=== PATIENT | male | born 1940 | race Caucasian/White ===

== ENCOUNTER 2017-06-08 16:23 | Inpatient (IN) | payer MEDICARE, MEDICAID ==
[~2017-06-08] VITALS: Ht 180.3 cm; Wt 61.7 kg
--- NOTE | 2017-06-08 18:52 | NUR ---
[facility] FROM [facility] FOR HYPERTENSION AND AUDITORY HALLUCINATIONS. GOWNED PT. AWAITING MD ORDER
--- NOTE | 2017-06-08 20:00 | NUR ---
VIOLET BURRIS RN DIRECTOR SEMICONDUCTOR AT BEDSIDE TO EVAL PT. PT CALM AND COOPERATIVE AT THIS TIME.
--- NOTE | 2017-06-08 20:29 | NUR ---
REPORT CALLED TO FELIPA GONZALEZ.
[2017-06-08] MEDS ORDERED: MAG HYDROX/AL HYDROX/SIMETH 30 ML UDC PO PRN (21:30)
[2017-06-08] MEDS ORDERED: MAGNESIUM HYDROXIDE 30 ML UDC PO PRN (21:30)
[2017-06-08] MEDS ORDERED: ACETAMINOPHEN 325 MG TABLET PO PRN (21:30)
[2017-06-08] MEDS ORDERED: LORAZEPAM 0.5 MG TABLET PO PRN (21:30)
[2017-06-08] MEDS ORDERED: DOCU-25 PO (22:15)
[2017-06-08] MEDS ORDERED: POLY17PO4 PO (22:15)
[2017-06-08] MEDS ORDERED: TAMS-12 PO (22:15)
[2017-06-08] MEDS ORDERED: CHOL20004 PO (22:15)
[2017-06-08] MEDS ORDERED: METO-306 PO (22:15)
[2017-06-08] MEDS ORDERED: HYDR-552 PO (22:15)
[2017-06-08] MEDS ORDERED: DIGO250T4 PO (22:15)
[2017-06-08] MEDS ORDERED: RIVA10TA PO (22:15)
[2017-06-08] MEDS ORDERED: TEMAZEPAM 7.5 MG CAPSULE ONE (23:47)
[2017-06-09] MEDS ORDERED: HYDROCODONE/APAP 5/325MG 1 EACH TABLET PO PRN
[2017-06-09] MEDS ORDERED: METOPROLOL SUCCINATE 50 MG TAB.SR.24H PO SCH
[2017-06-09] MEDS: TEMAZEPAM 7.5 MG CAPSULE PO PRN
--- NOTE | 2017-06-09 00:14 | NUR ---
PT'S BLOOD PRESSURE IS 115/48 MMHG PULSE 76. METOPROLOL 100 MG PO NOT GIVEN. WILL CONTINUE TO MONITOR PT'S BP FOR SAFETY.
--- NOTE | 2017-06-09 00:15 | NUR ---
PAGED LORE (NURSE PRACTITIONER) REGARDING METOPROLOL 100 MG NOT GIVEN. PER LORE CONTINUE THE NEXT DOSE IN THE MORNING. WILL CONTINUE TO MONITOR FOR SAFETY.
[2017-06-09 05:45] VITALS: BP 145/79
--- NOTE | 2017-06-09 05:53 | NUR ---
ADMISSION RN NOTE: ADMITTED THIS 77 Y/O MALE. PT ADMITTED FROM ER. PT CAME FROM [facility]. PT IS ON 5150 FOR GD. PSYCH DX OF PSYCHOSIS. MEDICAL DX OF HTN, AFIB, BPH. PER HOLD PATIENT IS CONFUSED. PATIENT STATED "I DON'T KNOW WHY I'M HERE, I WANT TO KNOW WHERE YOU GONNA SEND ME". PT IS DISORGANIZED, FORGETFUL, RAMBLING, DISHEVELED, UNKEMPT, RESPONDING TO INTERNAL STIMULI, PREOCCUPIED WITH HIS OWN THOUGHT. ACCORDING TO FACILITY STAFF. PATIENT IS INCREASINGLY CONFUSED, NON COMPLIANT WITH MEDS, RESTLESS, NOT SLEEPING. PT HAS BEEN DECLINING MENTALLY RECENTLY. UPON FACE TO FACE PT IS ALERT & ORIENTED X1-2, CONFUSED, DISORIENTED, DISORGANIZED. RESPIRATION EVEN, BREATHING PATTERN NON-LABORED, NO APPARENT DISTRESS NOTED. NO COMPLAIN OF PAIN AT THIS TIME. V/S WNL. MRSA DONE. SKIN BODY ASSESSMENT DONE. NOTED LEFT LOWER LEG SKIN TEAR, LEFT HAND WOUND, SKIN TEAR, BOTH LOWER LEGS DRYNESS, BACK, CHEST REDNESS, ARMPIT REDNESS, BOTH FOOT DRYNESS, CHEST REDNESS. WOUND CONSULT TRIGGERED. BELONGINGS INVENTORIED AND CHECKED FOR CONTRABAND. VALUABLES WERE PUT TO SAFE. BED LOCKED AND PLACED ON LOWEST POSITION. SIDERAILS UPX2. ALL NEEDS ATTENDED AND ANTICIPATED. WILL CONTINUE TO MONITOR Q15 MINS FOR SAFETY AND BEHAVIOR.
[2017-06-09 07:25] LABS: BASOPHILS % (AUTO) 0.3 % (0.0-2.0); EOSINOPHILS # (AUTO) 0.1 /CMM (0.0-0.7); EOSINOPHILS % (AUTO) 0.4 % (0.0-6.0); HEMATOCRIT 40 % (39-51); HEMOGLOBIN 13.3 g/dL (13.5-17.5); LYMPHOCYTES # (AUTO) 0.9 /CMM (0.8-4.8); LYMPHOCYTES % (AUTO) 7.7 % (20.0-44.0); MEAN CORPUSCULAR HEMOGLOBIN 30 PG (26.0-33.0); MEAN CORPUSCULAR HGB CONC 34 g/dl (31.0-36.0); MEAN CORPUSCULAR VOLUME 88 fL (80-96); MONOCYTES # (AUTO) 0.6 /CMM (0.1-1.30); MONOCYTES % (AUTO) 5.3 % (2.0-12.0); NEUTROPHILS # (AUTO) 10.3 /CMM (1.8-8.9); NEUTROPHILS % (AUTO) 86.3 % (43.0-81.0); PLATELET COUNT (AUTO) 117 /CMM (150-450); RDW COEFFICIENT OF VARIATION 16.8 (11.5-15.0); RED BLOOD CELL COUNT(AUTO) 4.48 MIL/uL (4.5-6.0); WHITE BLOOD COUNT (AUTO) 11.9 K/uL (4.3-11.0)
[2017-06-09 07:40] LABS: ALANINE AMINOTRANSFERASE 14 U/L (12-78); ALBUMIN 3.4 g/dL (3.4-5.0); ALKALINE PHOSPHATASE 80 U/L (46-116); ASPARTATE AMINOTRANSFERASE 15 U/L (15-37); BILIRUBIN,TOTAL 0.7 mg/dL (0.2-1.0); CARBON DIOXIDE 31 mmol/L (21-32); CHLORIDE 104 mmol/L (98-107); CREATININE 0.8 mg/dL (0.6-1.3); GLUCOSE 107 mg/dL (74-106); POTASSIUM 3.8 mmol/L (3.5-5.1); SODIUM SERUM 141 mmol/L (136-145); TOTAL PROTEIN, SERUM 6.6 g/dL (6.4-8.2); UREA NITROGEN, BLOOD 14 mg/dL (7-18)
[2017-06-09 07:53] LABS: CHOLESTEROL 155 mg/dL (<200); HDL CHOLESTEROL 51 mg/dL (40-60); LDL 92 mg/dL (0-99); TRIGLYCERIDES 74 mg/dL (30-150)
[2017-06-09 08:00] VITALS: BP 110/54
[2017-06-09] MEDS ORDERED: POLYETHYLENE GLYCOL 3350 17 GM POWD.PACK PO PRN (08:09)
[2017-06-09] MEDS: METOPROLOL SUCCINATE 50 MG TAB.SR.24H PO SCH (08:56)
[2017-06-09] MEDS: DOCUSATE SODIUM 100 MG CAPSULE PO SCH (09:00)
[2017-06-09] MEDS: TAMSULOSIN 0.4 MG CAP.SR.24H PO SCH (09:00)
[2017-06-09] MEDS: CHOLECALCIFEROL 1,000 UNIT TABLET (VIT D3) PO SCH (09:00)
--- NOTE | 2017-06-09 09:05 | NUR ---
GPS RN: PATIENT REFUSED MORNING MEDS, APPROACHED X3, EXPLAINED THE PURPOSE AND THE IMPORTANCE OF THE MEDICATIONS, PATIENT STILL REFUSED, STATES: "I WANT TO TALK TO MY DOCTOR FIRST". PATIENT IS CONFUSED AND DISORIENTED, HOWEVER, IS NOT IN ANY PHYSICAL DISTRESS, WILL CONTINUE TO MONITOR.
[2017-06-09 12:27] LABS: APPEARANCE,URINE CLOUDY (CLEAR); BILIRUBIN,URINE NEGATIVE (NEGATIVE); BLOOD, URINE 3+ Ery/uL (NEGATIVE); COLOR,URINE YELLOW (YELLOW); KETONES,URINE NEGATIVE (NEGATIVE); LEUKOCYTE ESTERASE ,URINE NEGATIVE (NEGATIVE); NITRITE, URINE NEGATIVE (NEGATIVE); PH,URINE 5.5 (5.0-8.0); PROTEIN,URINE 1+ mg/dl (NEGATIVE); UGLUCOSE NEGATIVE (NEGATIVE); UROBILINOGEN,URINE 0.2 EU/dL (0.2)
[2017-06-09 12:31] LABS: BACTERIA,URINE Rare /HPF (None Seen); MUCUS,URINE Few /LPF (None Seen); SQUAMOUS EPITHELIAL CELL,UR 0-2 /HPF (None Seen); WBC,URINE 0-2 /HPF (0-3)
[2017-06-09 12:32] LABS: URINE AMORPHOUS URATE Many /HPF (None Seen)
[2017-06-09] MEDS: DIGOXIN 0.25 MG TABLET PO SCH (12:35)
[2017-06-09 15:51] VITALS: BP 106/51
[2017-06-09] MEDS: RIVAROXABAN 10 MG TABLET PO SCH (16:37)
[2017-06-09] MEDS: NEOMY SULF/BACITRAC ZN/POLY 15 GM TUBE TP SCH (18:12)
[2017-06-09 20:00] VITALS: BP 105/62
[2017-06-09] MEDS: MIRTAZAPINE 15 MG TABLET PO SCH (21:12)
[2017-06-09] MEDS: Z GUARD REMEDY 2 OZ OINT TP SCH (21:13)
--- NOTE | 2017-06-10 06:43 | NUR ---
RN GPS NOTE PT .REMAINED IN STABLE CONDITION RESTING IN HIS BED ,NO ACUTE DISTRESS NOTED ATTENDED ALL NEEDS AND ANTICIPATED , DENIES SI/ HI AT THIS TIME,WILL ENDORSE TO NEXT SHIFT FOR CONTINUITY OF CARE
[2017-06-10 08:00] VITALS: BP 116/78
[2017-06-10] MEDS: NEOMY SULF/BACITRAC ZN/POLY 15 GM TUBE TP SCH (09:00)
[2017-06-10] MEDS: CHOLECALCIFEROL 1,000 UNIT TABLET (VIT D3) PO SCH (09:00)
[2017-06-10] MEDS: METOPROLOL SUCCINATE 50 MG TAB.SR.24H PO SCH (09:00)
[2017-06-10] MEDS: DOCUSATE SODIUM 100 MG CAPSULE PO SCH (09:00)
[2017-06-10] MEDS: TAMSULOSIN 0.4 MG CAP.SR.24H PO SCH (09:00)
[2017-06-10] MEDS: Z GUARD REMEDY 2 OZ OINT TP SCH ×2 (09:00→21:25)
[2017-06-10] MEDS: DIGOXIN 0.25 MG TABLET PO SCH (13:00)
[2017-06-10 16:00] VITALS: BP 139/53
[2017-06-10] MEDS: RIVAROXABAN 10 MG TABLET PO SCH (17:00)
[2017-06-10] MEDS: QUETIAPINE FUMARATE 25 MG TABLET PO SCH (17:00)
--- NOTE | 2017-06-10 18:21 | NUR ---
PT REFUSED 1700 MEDICATION. HE IS SEVERELY DISORIENTED AND FOCUSED ON HIS BELONGINGS AND WHY HE IS HERE. EVEN AFTER SHOWING HIM ADVISEMENT AND EXPLAINING THE REPORTED EVENTS LEADING UP TO HIS ADMISSION IN THE ER, HE STILL REFUSES IN FACT HE DENIES ANY OF THE REPORTED EVENTS BUT IS UNABLE TO STATE HOW HE ENDED UP IN THE HOSPITAL. TRIED TO GIVE HIM MEDICATIONS 3 DIFFERENT TIMES, BUT HE REFUSES.
[2017-06-10 19:57] VITALS: BP 129/83
[2017-06-10] MEDS: MIRTAZAPINE 15 MG TABLET PO SCH (21:25)
[2017-06-10] MEDS: TEMAZEPAM 7.5 MG CAPSULE PO PRN (21:26)
[2017-06-11 08:00] VITALS: BP 114/69
[2017-06-11] MEDS: TAMSULOSIN 0.4 MG CAP.SR.24H PO SCH (08:40)
[2017-06-11] MEDS: DOCUSATE SODIUM 100 MG CAPSULE PO SCH (08:40)
[2017-06-11] MEDS: METOPROLOL SUCCINATE 50 MG TAB.SR.24H PO SCH (08:40)
[2017-06-11] MEDS: CHOLECALCIFEROL 1,000 UNIT TABLET (VIT D3) PO SCH (08:41)
[2017-06-11] MEDS: Z GUARD REMEDY 2 OZ OINT TP SCH ×2 (09:00→21:18)
--- NOTE | 2017-06-11 09:00 | NUR ---
GPS/RN PATIENT REFUSED MEDICATION X 3, EXPLAINED RISKS AND BENEFITS, HOWEVER, PATIENT IS EXTREMELY DISORIENTED AND CONTINUES TO ADAMANTLY REFUSE ALL MEDICATIONS, WILL CONTINUE TO ENCOURAGE TO COMPLY WITH MD REGIMEN.
[2017-06-11] MEDS: NEOMY SULF/BACITRAC ZN/POLY 15 GM TUBE TP SCH (11:50)
[2017-06-11] MEDS: DIGOXIN 0.25 MG TABLET PO SCH (12:11)
--- NOTE | 2017-06-11 15:56 | NUR ---
Initial discharge plan: Pt is a resident at [facility] [address] [facility] [id number] but unable to verify now if pt is able to return. SW will follow up again with the facility and will help form safe and proper discharge.
[2017-06-11 15:58] VITALS: BP 114/69
[2017-06-11 16:00] VITALS: BP 119/67
[2017-06-11] MEDS: QUETIAPINE FUMARATE 25 MG TABLET PO SCH (16:17)
[2017-06-11] MEDS: RIVAROXABAN 10 MG TABLET PO SCH (16:21)
[2017-06-11 20:07] VITALS: BP 134/87
[2017-06-11] MEDS: MIRTAZAPINE 15 MG TABLET PO SCH (21:13)
[2017-06-11] MEDS: TEMAZEPAM 7.5 MG CAPSULE PO PRN (22:12)
[2017-06-12 08:00] VITALS: BP 133/67
[2017-06-12 08:01] VITALS: BP 133/67
[2017-06-12] MEDS: DOCUSATE SODIUM 100 MG CAPSULE PO SCH ×2 (08:01→08:59)
[2017-06-12] MEDS: TAMSULOSIN 0.4 MG CAP.SR.24H PO SCH ×2 (08:01→08:59)
[2017-06-12] MEDS: METOPROLOL SUCCINATE 50 MG TAB.SR.24H PO SCH ×2 (08:01→09:00)
[2017-06-12] MEDS: CHOLECALCIFEROL 1,000 UNIT TABLET (VIT D3) PO SCH ×2 (08:01→09:00)
--- NOTE | 2017-06-12 09:00 | NUR ---
GPS/RN PATIENT REFUSED 0900 MEDICATION X 3, EXPLAINED RISKS AND BENEFITS, HOWEVER, PATIENT IS EXTREMELY DISORIENTED AND CONTINUES TO ADAMANTLY REFUSE ALL MEDICATIONS, WILL CONTINUE TO ENCOURAGE TO COMPLY WITH MD REGIMEN.
[2017-06-12] MEDS: Z GUARD REMEDY 2 OZ OINT TP SCH ×2 (09:17→20:57)
[2017-06-12] MEDS: NEOMY SULF/BACITRAC ZN/POLY 15 GM TUBE TP SCH (10:15)
[2017-06-12] MEDS: DIGOXIN 0.25 MG TABLET PO SCH (13:40)
--- NOTE | 2017-06-12 14:05 | NUR ---
GEORGE spoke with Tabitha [phone] from [place] [address] [facility] [address] who stated that if pt. needs locked they they may not be appropriate for the patient to return there. GEORGE was provided the admission coordinator, Dionne's phone number [phone] to call to confirm. Per Dionne, pt. cannot return there as he needs a locked facility. GEORGE will follow up with and will find a more appropriate facility.
--- NOTE | 2017-06-12 14:20 | NUR ---
Pt. was referred to to [facility] [address], [place] [address] . will follow up with February from admission. Addendum: 06/12/17 at 1522 by SUNDAY VAZQUEZ February from the facility stated that they are able to accept the patient but will need to open up a bed in their locked unit.
[2017-06-12 16:00] VITALS: BP 133/67
[2017-06-12] MEDS: QUETIAPINE FUMARATE 25 MG TABLET PO SCH (17:11)
[2017-06-12] MEDS: RIVAROXABAN 10 MG TABLET PO SCH (17:12)
[2017-06-12 20:25] VITALS: BP 147/68
[2017-06-12] MEDS: MIRTAZAPINE 15 MG TABLET PO SCH (21:04)
[2017-06-13] MEDS: TEMAZEPAM 7.5 MG CAPSULE PO PRN ×2 (01:59→21:07)
[2017-06-13 08:00] VITALS: BP 112/60
[2017-06-13] MEDS: BOOST PLUS FOOD-VANILLA 237 ML BOX PO SCH ×2 (08:00→18:04)
[2017-06-13] MEDS: DOCUSATE SODIUM 100 MG CAPSULE PO SCH (08:38)
[2017-06-13] MEDS: TAMSULOSIN 0.4 MG CAP.SR.24H PO SCH (08:39)
[2017-06-13] MEDS: CHOLECALCIFEROL 1,000 UNIT TABLET (VIT D3) PO SCH (08:39)
[2017-06-13] MEDS: METOPROLOL SUCCINATE 50 MG TAB.SR.24H PO SCH (08:40)
[2017-06-13] MEDS: Z GUARD REMEDY 2 OZ OINT TP SCH ×2 (08:42→21:06)
[2017-06-13] MEDS: NEOMY SULF/BACITRAC ZN/POLY 15 GM TUBE TP SCH (08:42)
--- NOTE | 2017-06-13 11:55 | NUR ---
WOUND CARE CONSULT: DEFER TO SURGICAL TEAM FOR SKIN ISSUES. SURGICAL TEAM FOLLOWING PATIENT.
[2017-06-13] MEDS: DIGOXIN 0.25 MG TABLET PO SCH (12:33)
[2017-06-13] MEDS: QUETIAPINE FUMARATE 25 MG TABLET PO SCH ×2 (12:40→17:59)
[2017-06-13 16:00] VITALS: BP 111/68
[2017-06-13] MEDS: MEMANTINE HCL 5 MG TABLET PO SCH (17:58)
[2017-06-13] MEDS: RIVAROXABAN 10 MG TABLET PO SCH (17:59)
[2017-06-13 19:53] VITALS: BP 116/73
[2017-06-13] MEDS: MIRTAZAPINE 15 MG TABLET PO SCH (21:07)
[2017-06-14 06:53] LABS: INR 0.99 (0.87-1.13); PROTHROMBIN TIME 10.6 SECS (9.5-12.7)
[2017-06-14 07:11] LABS: ALANINE AMINOTRANSFERASE 7 U/L (12-78); ALBUMIN 3.1 g/dL (3.4-5.0); ALKALINE PHOSPHATASE 78 U/L (46-116); ASPARTATE AMINOTRANSFERASE 18 U/L (15-37); BILIRUBIN,TOTAL 0.5 mg/dL (0.2-1.0); CALCIUM, SERUM 8.5 mg/dL (8.5-10.1); CARBON DIOXIDE 33 mmol/L (21-32); CHLORIDE 105 mmol/L (98-107); CREATININE 0.8 mg/dL (0.6-1.3); GLUCOSE 96 mg/dL (74-106); SODIUM SERUM 141 mmol/L (136-145); TOTAL PROTEIN, SERUM 6.3 g/dL (6.4-8.2); UREA NITROGEN, BLOOD 16 mg/dL (7-18)
[2017-06-14 07:20] LABS: FERRITIN 346 ng/mL (8-388); THYROID STIMULATING HORMONE 1.394 uIU/mL (0.358-3.74)
[2017-06-14 07:25] LABS: BASOPHILS % (AUTO) 0.4 % (0.0-2.0); EOSINOPHILS # (AUTO) 0.1 /CMM (0.0-0.7); EOSINOPHILS % (AUTO) 0.8 % (0.0-6.0); HEMATOCRIT 41 % (39-51); HEMOGLOBIN 13.7 g/dL (13.5-17.5); LYMPHOCYTES # (AUTO) 1.2 /CMM (0.8-4.8); LYMPHOCYTES % (AUTO) 9.8 % (20.0-44.0); MEAN CORPUSCULAR HEMOGLOBIN 29 PG (26.0-33.0); MEAN CORPUSCULAR HGB CONC 33 g/dl (31.0-36.0); MEAN CORPUSCULAR VOLUME 89 fL (80-96); MONOCYTES # (AUTO) 0.6 /CMM (0.1-1.30); PLATELET COUNT (AUTO) 130 /CMM (150-450); RDW COEFFICIENT OF VARIATION 17.1 (11.5-15.0); RED BLOOD CELL COUNT(AUTO) 4.65 MIL/uL (4.5-6.0); WHITE BLOOD COUNT (AUTO) 11.9 K/uL (4.3-11.0)
[2017-06-14 07:35] LABS: IRON, SERUM 45 ug/dl (50-175); TOTAL IRON BINDING CAPACITY 261 ug/dl (250-450)
[2017-06-14 08:00] VITALS: BP 135/77
[2017-06-14] MEDS: CHOLECALCIFEROL 1,000 UNIT TABLET (VIT D3) PO SCH (08:35)
[2017-06-14] MEDS: DOCUSATE SODIUM 100 MG CAPSULE PO SCH (08:35)
[2017-06-14] MEDS: MEMANTINE HCL 5 MG TABLET PO SCH ×2 (08:35→17:28)
[2017-06-14] MEDS: TAMSULOSIN 0.4 MG CAP.SR.24H PO SCH (08:35)
[2017-06-14] MEDS: QUETIAPINE FUMARATE 25 MG TABLET PO SCH ×3 (08:35→17:28)
[2017-06-14] MEDS: Z GUARD REMEDY 2 OZ OINT TP SCH ×2 (08:37→21:03)
[2017-06-14] MEDS: NEOMY SULF/BACITRAC ZN/POLY 15 GM TUBE TP SCH (08:37)
[2017-06-14] MEDS: BOOST PLUS FOOD-VANILLA 237 ML BOX PO SCH ×2 (08:51→17:00)
[2017-06-14] MEDS: METOPROLOL SUCCINATE 50 MG TAB.SR.24H PO SCH (09:00)
--- NOTE | 2017-06-14 10:43 | NUR ---
GPS/RN ENCOURAGED PATIENT TO CONSENT TO CT SCANS, PATIENT STATED THAT HE WOULD CONSENT TO CT SCAN OF CHEST AND ABDOMEN BUT IS NOT WILLING TO HAVE THE TESTS DONE TODAY, STATED THAT HE WILL BE WILLING TO HAVE TESTS DONE TOMORROW. CHARGE NURSE AWARE, RADIOLOGY AWARE, WILL NOTIFY DR ALBERTO AND REMOVE PATIENT FROM NPO STATUS.
--- NOTE | 2017-06-14 10:47 | NUR ---
GPS/RN NPO STATUS REMOVED UNTIL FURTHER NOTICE.
--- NOTE | 2017-06-14 14:00 | NUR ---
GPS/RN SPOKE WITH DR ALBERTO REGARDING PATIENT REFUSAL TO HAVE CT OF CHEST AND ABDOMEN DONE TODAY AND THAT HE WOULD AGREE TO HAVE THE CT SCANS DONE TOMORROW, VERBALIZED UNDERSTANDING, NO NEW ORDERS AT THIS TIME.
[2017-06-14] MEDS: DIGOXIN 0.25 MG TABLET PO SCH (14:09)
--- NOTE | 2017-06-14 14:30 | NUR ---
GPS/RN PATIENT REFUSED TO SIGN CONTRAST CONSENT FORM X3, EXPLAINED RISKS AND BENEFITS IN DEPTH BUT CONTINUES TO REFUSE. WILL CONTINUE TO ENCOURAGE TO COMPLY WITH MD REGIMEN AND TREATMENTS.
[2017-06-14 16:00] VITALS: BP 118/63
--- NOTE | 2017-06-14 16:52 | NUR ---
RN-CO: Dr Rashid Ren (oncologist) seen and examined patient and explained the procedures that need to be done asked for patient to sign the consent forms of CT of chest and abdomen w/ and w/out contrast and bone marrow biopsy but patient refused. Per Dr Mike , Dr Jaimes will try to help in explaining the tests once again to him tomorrow.
[2017-06-14] MEDS: RIVAROXABAN 10 MG TABLET PO SCH (17:29)
--- NOTE | 2017-06-14 19:30 | NUR ---
GPS RN NOTE, RECEIVED PATIENT AWAKE AND IN BED, NO S/S OR COMPLAINTS OF PAIN AT THIS TIME. PATIENT IS DISPLAYING NO S/S OF APPARENT DISTRESS AT THIS TIME. PATIENT BREATHING IS UNLABORED WITH EQUAL RISE AND FALL OF THE CHEST. PATIENT IS ALERT AND ORIENTED X 1 ON ROOM AIR WITH A SPO2 97%. PATIENT SELECTIVE WITH MEDICATION, ANXIOUS, COOPERATIVE, CALM, CONFUSED, AND NEEDS REORIENTATION. PATIENT DENIES SUICIDE AND HOMICIDAL IDEATIONS AT THIS TIME. PATIENT ASSISTED WITH TURNING AND REPOSITIONING Q2HR AND PRN FOR COMFORT AND CIRCULATION. PATIENT HAS NO NEEDS AT THIS TIME. PATIENT EDUCATED ON THE USE OF THE CALL LUIS. PATIENT BED SIDE RAILS UP X2 FOR SAFETY, BED IS LOCKED AND LOW WILL CONTINUE TO MONITOR AND MAINTAIN SAFETY.
[2017-06-14 20:00] VITALS: BP 119/63
[2017-06-14] MEDS: MIRTAZAPINE 15 MG TABLET PO SCH (21:03)
[2017-06-15] MEDS: TAMSULOSIN 0.4 MG CAP.SR.24H PO SCH (07:51)
[2017-06-15] MEDS: DOCUSATE SODIUM 100 MG CAPSULE PO SCH (07:51)
[2017-06-15] MEDS: MEMANTINE HCL 5 MG TABLET PO SCH ×2 (07:52→17:00)
[2017-06-15] MEDS: CHOLECALCIFEROL 1,000 UNIT TABLET (VIT D3) PO SCH (07:52)
[2017-06-15] MEDS: METOPROLOL SUCCINATE 50 MG TAB.SR.24H PO SCH (07:55)
[2017-06-15 08:00] VITALS: BP 113/58
[2017-06-15] MEDS: Z GUARD REMEDY 2 OZ OINT TP SCH ×2 (08:22→21:28)
[2017-06-15] MEDS: NEOMY SULF/BACITRAC ZN/POLY 15 GM TUBE TP SCH (08:22)
[2017-06-15] MEDS: BOOST PLUS FOOD-VANILLA 237 ML BOX PO SCH ×2 (08:31→17:57)
--- NOTE | 2017-06-15 08:31 | NUR ---
AWAITING CONSENT FOR COMPUTED TOMOGRAPHY CHEST ABDOMEN PELVIS WITH CONTRAST STUDY. PATIENT MUST BE NPO 2-4 HOURS.
[2017-06-15] MEDS: QUETIAPINE FUMARATE 25 MG TABLET PO SCH ×3 (08:33→21:33)
--- NOTE | 2017-06-15 10:48 | NUR ---
Was informed that patient needs to have some procedures done and consent needs to be obtained. GEORGE spoke with GEORGE (Tabitha [phone]) from [address] [address]; [phone] who stated that the patient has a DPOA for healthcare who is his ex-girlfriend and his cousin. GEORGE Lu faxed [employer] Directive Form to GEORGE and GEORGE placed paperwork in the patient's chart and informed the charge nurse who will contact the responsible alliance party for consents. Tabitha also stated that the patient's belongings are packed (5 boxes) and asked if she should bring them to the hospital. GEORGE informed her that she can wait until patient is transferred and new facility will coordinate vegetable picker of the patient's belongings with her. Assigned GEORGE Alfonso to notify her of discharge and coordinate vegetable picker of belongings with new facility.
--- NOTE | 2017-06-15 11:34 | NUR ---
RN-CO: Patient refused again to signed the consent for CT w/ ,w/o contrast, with the explanation of Dr Phoenix oncologist. explained the risk and benefits but pt still refused.
--- NOTE | 2017-06-15 12:00 | NUR ---
GPS RN NOTE: RECEIVED PATIENT RESTING COMFORTABLY IN BED WITH NO SIGNS OF DISTRESS. PATIENT IS ALERT AND ORIENTED. DENIES PAIN. DENIES SI/HI. ALL NEEDS MET AND ANTICIPATED. WILL CONTINUE TO MONITOR FOR SAFETY AND BEHAVIOR.
[2017-06-15] MEDS: DIGOXIN 0.25 MG TABLET PO SCH (13:56)
--- NOTE | 2017-06-15 14:00 | NUR ---
GPS RN NOTE: PATIENT REFUSED WOUND CARE. EDUCATED PATIENT ABOUT RISKS AND BENEFITS X3, BUT PATIENT STILL REFUSED. WILL CONTINUE TO MONITOR.
--- NOTE | 2017-06-15 15:35 | NUR ---
GPS RN NOTE: PATIENT IS FORGETFUL, GUARDED AND NEEDS REORIENTATION. DENIES SI/HI. DENIES PAIN. WILL CONTINUE TO MONITOR Q15 MIN FOR SAFETY AND BEHAVIOR.
[2017-06-15 16:00] VITALS: BP 129/72
[2017-06-15] MEDS: RIVAROXABAN 10 MG TABLET PO SCH (17:00)
--- NOTE | 2017-06-15 17:46 | NUR ---
GPS RN NOTE: PATIENT REFUSED XARELTO 20MG PO TAB AND NAMENDA 5MG PO TAB AND ATTEMPTED KEEPING MEDICATIONS AT BEDSIDE. EDUCATED PATIENT X3 REGARDING RISKS AND BENEFITS OF TAKING MEDICATIONS, BUT PATIENT REFUSED STATING "THOSE ARE NOT PRESCRIBED TO ME BY MY DOCTOR." REVIEWED MEDICATION LIST WITH PATIENT AND MACHINE TAPER PRESENT. PATIENT CONTINUED TO REFUSE MEDICATIONS WHILE ASKING FOR "BARTOLO" AND HIS "DOG." REORIENTED PATIENT THAT HE IS AT [facility] AND THAT HIS DOG IS NOT HERE NOR IS BARTOLO. PATIENT CONTINUED TO REFUSED XARELTO 20MG PO TAB AND NAMENDA 5MG PO TAB DESPITE EDUCATION. CHARGE NURSE INFORMED. MEDICATIONS RETRIEVED AND DISPOSED IN PROPER CONTAINER.
--- NOTE | 2017-06-15 17:49 | NUR ---
RN-CO: Contacted CELESTINE Silke Estrada w/ e mail of [email or web address]. Ms Estrada stated that she will sign the consent but she needs it to be e mail to her and she will take a picture with her signature.
--- NOTE | 2017-06-15 18:10 | NUR ---
MORENACO: Vinicio (aboriginal community council member) e mailed the consent to [facility].
--- NOTE | 2017-06-15 19:01 | NUR ---
RN-CO: certified legal secretary specialist e mailed the consents to Silke SPRAGUE for signature. Awaiting to sign and e mailed it back w/ signature. Endorsed to the next shift. Will continue to follow up.
--- NOTE | 2017-06-15 19:14 | NUR ---
GPS RN NOTE: WOUND CARE ENDORSED TO STATION OPERATOR NURSE. INFORMED THAT PATIENT HAD REFUSED WOUND CARE EARLIER.
[2017-06-15 20:00] VITALS: BP 117/61
--- NOTE | 2017-06-15 21:26 | NUR ---
GPS/RN NOTE: PATIENT REFUSED MEDICATIONS, OFFERED 3X, STILL REFUSED. WILL TRY ONE MORE TIME LATER.
[2017-06-15] MEDS: MIRTAZAPINE 15 MG TABLET PO SCH (22:00)
--- NOTE | 2017-06-16 03:29 | NUR ---
GPS/RN NOTE: PATIENT 2 OF HIS MEDICATIONS, REFUSED REMERON
[2017-06-16 07:23] LABS: BASOPHILS % (AUTO) 0.3 % (0.0-2.0); EOSINOPHILS # (AUTO) 0.1 /CMM (0.0-0.7); EOSINOPHILS % (AUTO) 0.8 % (0.0-6.0); HEMATOCRIT 37 % (39-51); HEMOGLOBIN 12.4 g/dL (13.5-17.5); LYMPHOCYTES # (AUTO) 1.1 /CMM (0.8-4.8); LYMPHOCYTES % (AUTO) 8.8 % (20.0-44.0); MEAN CORPUSCULAR HEMOGLOBIN 30 PG (26.0-33.0); MEAN CORPUSCULAR HGB CONC 34 g/dl (31.0-36.0); MEAN CORPUSCULAR VOLUME 88 fL (80-96); MONOCYTES # (AUTO) 0.6 /CMM (0.1-1.30); MONOCYTES % (AUTO) 4.9 % (2.0-12.0); NEUTROPHILS # (AUTO) 10.7 /CMM (1.8-8.9); NEUTROPHILS % (AUTO) 85.2 % (43.0-81.0); PLATELET COUNT (AUTO) 117 /CMM (150-450); RDW COEFFICIENT OF VARIATION 16.7 (11.5-15.0); RED BLOOD CELL COUNT(AUTO) 4.18 MIL/uL (4.5-6.0); WHITE BLOOD COUNT (AUTO) 12.6 K/uL (4.3-11.0)
--- NOTE | 2017-06-16 07:30 | NUR ---
RECEIVED PT. CONFUSED,ALERT AND UNCOOPErative at times.
[2017-06-16 07:33] LABS: DIGOXIN 0.39 ng/mL (0.90-2.00)
[2017-06-16 07:35] LABS: CALCIUM, SERUM 8.3 mg/dL (8.5-10.1); CARBON DIOXIDE 30 mmol/L (21-32); CHLORIDE 105 mmol/L (98-107); CREATININE 0.7 mg/dL (0.6-1.3); GLUCOSE 90 mg/dL (74-106); MAGNESIUM 1.9 mg/dL (1.8-2.4); PHOSPHORUS 3.7 mg/dL (2.5-4.9); POTASSIUM 4.4 mmol/L (3.5-5.1); SODIUM SERUM 140 mmol/L (136-145); UREA NITROGEN, BLOOD 15 mg/dL (7-18)
[2017-06-16 08:00] VITALS: BP 112/66
--- NOTE | 2017-06-16 08:14 | NUR ---
PT. REFUSING TO SIGN THE CONSENT PER RN DANYELLE), ON HOLD FOR NOW.
[2017-06-16] MEDS: METOPROLOL SUCCINATE 50 MG TAB.SR.24H PO SCH (09:00)
[2017-06-16] MEDS: BOOST PLUS FOOD-VANILLA 237 ML BOX PO SCH ×2 (09:21→17:33)
[2017-06-16] MEDS: DOCUSATE SODIUM 100 MG CAPSULE PO SCH (09:22)
[2017-06-16] MEDS: MEMANTINE HCL 5 MG TABLET PO SCH ×2 (09:22→17:33)
[2017-06-16] MEDS: TAMSULOSIN 0.4 MG CAP.SR.24H PO SCH (09:22)
[2017-06-16] MEDS: QUETIAPINE FUMARATE 25 MG TABLET PO SCH ×3 (09:22→21:20)
[2017-06-16] MEDS: CHOLECALCIFEROL 1,000 UNIT TABLET (VIT D3) PO SCH (09:23)
[2017-06-16] MEDS: Z GUARD REMEDY 2 OZ OINT TP SCH ×2 (09:24→21:22)
[2017-06-16] MEDS: NEOMY SULF/BACITRAC ZN/POLY 15 GM TUBE TP SCH (09:24)
--- NOTE | 2017-06-16 09:30 | NUR ---
refused wound care.
--- NOTE | 2017-06-16 10:30 | NUR ---
DR. FOSTER,DR. ANDERSON IN TO SEE PT.
[2017-06-16] MEDS ORDERED: IOHEXOL-300 100 ML VIAL IV ONE (11:21)
[2017-06-16] MEDS ORDERED: IV NS 0.9% 250 ML IV ONE (11:21)
[2017-06-16] MEDS ORDERED: CT SWABBABLE VALVE TRANS SET 1 EA INFUS.SET MC ONE (11:21)
--- NOTE | 2017-06-16 11:49 | NUR ---
called for patient to have ct done, patient did not have iv, they will call when ready
--- NOTE | 2017-06-16 12:15 | NUR ---
GPS RN: SPOKE WITH LORAINE CHILEL. OBTAINED PHONE CONSENT FOR CT SCAN WITH AND WITHOUT CONTRAST AND FOR BONE MARROW BIOPSY AND ASPIRATION. WITNESSED BY DR. JEFF ALBERTO, ONCOLOGIST.
[2017-06-16] MEDS ORDERED: LIDOCAINE 1% INJ 50 ML MDV IJ ONE (12:30)
--- NOTE | 2017-06-16 12:30 | NUR ---
IV STARTED RT. FOREARM GAUGE [address]DR. ALBERTO HERE AND MULTIPLE ORDERS GIVEN.
--- NOTE | 2017-06-16 12:57 | NUR ---
patient was fed , nurse was aware pt had to be npo 1255
[2017-06-16] MEDS: DIGOXIN 0.25 MG TABLET PO SCH (13:00)
[2017-06-16 16:00] VITALS: BP 122/71
--- NOTE | 2017-06-16 18:00 | NUR ---
no change in status.
--- NOTE | 2017-06-16 18:15 | NUR ---
refused some of meds today.
[2017-06-16 20:00] VITALS: BP 105/70
[2017-06-16] MEDS: MIRTAZAPINE 15 MG TABLET PO SCH (21:20)
[2017-06-17 08:00] VITALS: BP 108/72
[2017-06-17] MEDS: METOPROLOL SUCCINATE 50 MG TAB.SR.24H PO SCH (09:00)
[2017-06-17] MEDS: BOOST PLUS FOOD-VANILLA 237 ML BOX PO SCH ×2 (09:13→17:11)
[2017-06-17] MEDS: MEMANTINE HCL 5 MG TABLET PO SCH ×2 (09:14→17:09)
[2017-06-17] MEDS: QUETIAPINE FUMARATE 25 MG TABLET PO SCH ×3 (09:14→19:13)
[2017-06-17] MEDS: DOCUSATE SODIUM 100 MG CAPSULE PO SCH (09:14)
[2017-06-17] MEDS: TAMSULOSIN 0.4 MG CAP.SR.24H PO SCH (09:14)
[2017-06-17] MEDS: CHOLECALCIFEROL 1,000 UNIT TABLET (VIT D3) PO SCH (09:14)
[2017-06-17] MEDS: NEOMY SULF/BACITRAC ZN/POLY 15 GM TUBE TP SCH (09:15)
[2017-06-17] MEDS: Z GUARD REMEDY 2 OZ OINT TP SCH ×2 (09:16→20:02)
--- NOTE | 2017-06-17 09:21 | NUR ---
GPS RN NOTE; PER CYTOGENETICIST KOBE BIOPSY GOING TO BE DONE AT THE BED SIDE IN GPS DR ALBERTO AWARE AND AGREED
[2017-06-17] MEDS ORDERED: LORAZEPAM 1 MG TABLET PO ONE (09:30)
--- NOTE | 2017-06-17 09:31 | NUR ---
[id number]: GAVE ATIVAN 1 MG PO DUE TO INCREASED ANXIETY UPON PT REQUEST AND WILL CONTINUE TO MONITOR FOR EFFECTIVENESS OF MEDICATION.
--- NOTE | 2017-06-17 10:42 | NUR ---
[id number]: GAVE NORCO 5/325 MG PO DUE TO GENERALIZED PAIN 07/05 UPON PT REQUEST AND WILL CONTINUE TO MONITOR FOR EFFECTIVENESS OF MEDICATION.
--- NOTE | 2017-06-17 11:20 | NUR ---
[id number]: DR. ALBERTO DID A BONE MARROW BIOPSY AND ASPIRATION ON PT. PT IS TO ALLOWED TO SHOWER UNTIL TOMORROW 06/18/17 AND NOT TAKE XARELTO TODAY. WILL CONTINUE TO MONITOR FOR SIGNS OF INFECTION OR CONTINUOUS BLEEDING.
[2017-06-17] MEDS: DIGOXIN 0.25 MG TABLET PO SCH (12:39)
[2017-06-17 16:00] VITALS: BP 110/61
[2017-06-17 16:18] LABS: BASOPHILS # (AUTO) 0.1 /CMM (0.0-0.2); BASOPHILS % (AUTO) 0.8 % (0.0-2.0); EOSINOPHILS % (AUTO) 0.4 % (0.0-6.0); HEMATOCRIT 38 % (39-51); HEMOGLOBIN 12.5 g/dL (13.5-17.5); LYMPHOCYTES % (AUTO) 8.6 % (20.0-44.0); MEAN CORPUSCULAR HEMOGLOBIN 29 PG (26.0-33.0); MEAN CORPUSCULAR HGB CONC 33 g/dl (31.0-36.0); MEAN CORPUSCULAR VOLUME 88 fL (80-96); MONOCYTES # (AUTO) 0.6 /CMM (0.1-1.30); MONOCYTES % (AUTO) 5.1 % (2.0-12.0); NEUTROPHILS # (AUTO) 9.4 /CMM (1.8-8.9); NEUTROPHILS % (AUTO) 85.1 % (43.0-81.0); PLATELET COUNT (AUTO) 125 /CMM (150-450); RED BLOOD CELL COUNT(AUTO) 4.31 MIL/uL (4.5-6.0); WHITE BLOOD COUNT (AUTO) 11.1 K/uL (4.3-11.0)
[2017-06-17 16:33] LABS: CALCIUM, SERUM 8.2 mg/dL (8.5-10.1); CARBON DIOXIDE 33 mmol/L (21-32); CHLORIDE 102 mmol/L (98-107); CREATININE 0.9 mg/dL (0.6-1.3); GLUCOSE 85 mg/dL (74-106); PHOSPHORUS 3.9 mg/dL (2.5-4.9); POTASSIUM 4.1 mmol/L (3.5-5.1); SODIUM SERUM 139 mmol/L (136-145); UREA NITROGEN, BLOOD 19 mg/dL (7-18)
[2017-06-17 16:36] LABS: INR 0.97 (0.87-1.13); PROTHROMBIN TIME 10.4 SECS (9.5-12.7)
--- NOTE | 2017-06-17 17:30 | NUR ---
XAU-BT-[id number]: NOTIFIED DR. ANDERSON ABOUT LAB VALUES FOR TODAY: WBC= 11.1, RBC= 4.31, HGB= 12.5, HCT= 38, RDW COEFF OF MARTIN= 17.0, PLT COUNT= 125, NEUT%= 85.1, LYMPH %= 8.6, NEUT #= 9.4, CO2= 33, BUN= 19, CALCIUM= 8.2. PENDING RETURN PHONE CALL.
[2017-06-17 19:53] VITALS: BP 109/43
--- NOTE | 2017-06-17 20:59 | NUR ---
GPS/RN NOTE: RECEIVED AWAKE, ALERT, VERY CONFUSED, TALKS ABOUT HIS DOG, NAME BARTOLO, SHOES, AMBULATING BACK AND FORTH AT THE N. STATION. NO APPARENT DISTRESS NOTED.
[2017-06-17] MEDS: MIRTAZAPINE 15 MG TABLET PO SCH (21:21)
[2017-06-18] MEDS: TEMAZEPAM 7.5 MG CAPSULE PO PRN (02:29)
--- NOTE | 2017-06-18 02:30 | NUR ---
GPS/RN NOTE: PATIENT STILL AWAKE, REFUSED TO TAKE SLEEPING PILL EARLIER. OFFERED TEMAZEPAM 7.5 MG NOW. PATIENT TOOK IT.
--- NOTE | 2017-06-18 02:36 | NUR ---
GPS/RN NOTE: PATIENT STILL REFUSING SKIN ASSESSMENT AND PHOTOS.
[2017-06-18 06:37] LABS: BASOPHILS % (AUTO) 0.3 % (0.0-2.0); EOSINOPHILS % (AUTO) 0.2 % (0.0-6.0); HEMATOCRIT 37 % (39-51); HEMOGLOBIN 12.4 g/dL (13.5-17.5); LYMPHOCYTES # (AUTO) 1.1 /CMM (0.8-4.8); LYMPHOCYTES % (AUTO) 8.3 % (20.0-44.0); MEAN CORPUSCULAR HEMOGLOBIN 30 PG (26.0-33.0); MEAN CORPUSCULAR HGB CONC 34 g/dl (31.0-36.0); MEAN CORPUSCULAR VOLUME 88 fL (80-96); MONOCYTES # (AUTO) 0.7 /CMM (0.1-1.30); MONOCYTES % (AUTO) 5.2 % (2.0-12.0); PLATELET COUNT (AUTO) 123 /CMM (150-450); RDW COEFFICIENT OF VARIATION 16.5 (11.5-15.0); RED BLOOD CELL COUNT(AUTO) 4.17 MIL/uL (4.5-6.0); WHITE BLOOD COUNT (AUTO) 12.8 K/uL (4.3-11.0)
[2017-06-18 07:07] LABS: CALCIUM, SERUM 8.3 mg/dL (8.5-10.1); CARBON DIOXIDE 31 mmol/L (21-32); CHLORIDE 102 mmol/L (98-107); CREATININE 0.8 mg/dL (0.6-1.3); GLUCOSE 105 mg/dL (74-106); PHOSPHORUS 3.4 mg/dL (2.5-4.9); POTASSIUM 4.1 mmol/L (3.5-5.1); SODIUM SERUM 138 mmol/L (136-145); UREA NITROGEN, BLOOD 20 mg/dL (7-18)
[2017-06-18 08:00] VITALS: BP 112/76
[2017-06-18] MEDS: MEMANTINE HCL 5 MG TABLET PO SCH ×3 (08:01→17:00)
[2017-06-18] MEDS: TAMSULOSIN 0.4 MG CAP.SR.24H PO SCH ×2 (08:01→08:47)
[2017-06-18] MEDS: DOCUSATE SODIUM 100 MG CAPSULE PO SCH ×2 (08:01→08:47)
[2017-06-18] MEDS: QUETIAPINE FUMARATE 25 MG TABLET PO SCH ×4 (08:01→20:47)
[2017-06-18] MEDS: CHOLECALCIFEROL 1,000 UNIT TABLET (VIT D3) PO SCH ×2 (08:02→08:48)
[2017-06-18] MEDS: METOPROLOL SUCCINATE 50 MG TAB.SR.24H PO SCH (08:02)
[2017-06-18] MEDS: BOOST PLUS FOOD-VANILLA 237 ML BOX PO SCH ×2 (08:11→17:04)
[2017-06-18] MEDS: Z GUARD REMEDY 2 OZ OINT TP SCH ×2 (08:15→21:00)
[2017-06-18] MEDS: NEOMY SULF/BACITRAC ZN/POLY 15 GM TUBE TP SCH (08:16)
--- NOTE | 2017-06-18 10:13 | NUR ---
GEORGE was notified that pt. has a power of identity management consultant, Silke Sanchez [phone]. When GEORGE spoke with Dionne from [facility] [phone] she has informed the licensed clinical social worker that pt. had a girlfriend, who dropped him off at the facility and left and did not want to be involved. She had not mentioned anything about the girlfriend being a power of identity management consultant. She said the girlfriend left and has not been involved since then. It appears that the information provided by Dionne was not accurate.
[2017-06-18] MEDS: DIGOXIN 0.25 MG TABLET PO SCH (12:44)
[2017-06-18 16:00] VITALS: BP 121/51
--- NOTE | 2017-06-18 17:50 | NUR ---
[id number]: NOTIFIED DR. ANDERSON IF TO RESTART XARELTO 20 MG PO AT 1700. [address]. ANDERSON STATED, "I WILL TAKE CARE OF IT. "
[2017-06-18] MEDS: RIVAROXABAN 10 MG TABLET PO SCH (18:30)
[2017-06-18 19:40] VITALS: BP 105/56
[2017-06-18] MEDS: MIRTAZAPINE 15 MG TABLET PO SCH (20:47)
--- NOTE | 2017-06-18 23:25 | NUR ---
GPS/RN PATIENT IS SLEEPING AT THIS TIME, CALM AND COMFORTABLE, BREATHING EVEN AND UNLABORED, WILL CONTINUE TO MONITOR.
--- NOTE | 2017-06-19 06:24 | NUR ---
GPS/RN PATIENT AWAKE, ALERT AT THIS TIME. REFUSED BLOOD DRAW FOR TODAY'S LAB TESTS DESPITE EXPLANATIONS.
[2017-06-19] MEDS: QUETIAPINE FUMARATE 25 MG TABLET PO SCH ×3 (08:07→20:04)
[2017-06-19] MEDS: DOCUSATE SODIUM 100 MG CAPSULE PO SCH (08:07)
[2017-06-19] MEDS: CHOLECALCIFEROL 1,000 UNIT TABLET (VIT D3) PO SCH (08:07)
[2017-06-19] MEDS: MEMANTINE HCL 5 MG TABLET PO SCH ×2 (08:07→16:49)
[2017-06-19] MEDS: TAMSULOSIN 0.4 MG CAP.SR.24H PO SCH (08:08)
[2017-06-19] MEDS: METOPROLOL SUCCINATE 50 MG TAB.SR.24H PO SCH (08:11)
[2017-06-19 08:12] VITALS: BP 105/57
[2017-06-19] MEDS: BOOST PLUS FOOD-VANILLA 237 ML BOX PO SCH ×2 (08:23→16:48)
[2017-06-19] MEDS: Z GUARD REMEDY 2 OZ OINT TP SCH ×2 (08:24→20:16)
[2017-06-19] MEDS: NEOMY SULF/BACITRAC ZN/POLY 15 GM TUBE TP SCH (08:31)
[2017-06-19] MEDS: DIGOXIN 0.25 MG TABLET PO SCH (12:45)
[2017-06-19 15:56] VITALS: BP 132/76
[2017-06-19] MEDS: RIVAROXABAN 10 MG TABLET PO SCH (16:49)
[2017-06-19 19:40] VITALS: BP 114/71
--- NOTE | 2017-06-19 20:00 | NUR ---
RN/GPS NOTES PATIENT IN ROOM, FLAT AFFECT, CALM, NO DISTRESS, NO COMPLAIN OF PAIN, KEPT SAFE AND COMFORTABLE, WILL CONTINUE TO MONITOR
[2017-06-19] MEDS: MIRTAZAPINE 15 MG TABLET PO SCH (22:11)
--- NOTE | 2017-06-20 06:45 | NUR ---
PATIENT IS ALERT AND AWAKE, NO SOB, NO COMPLAIN OF PAIN, GETTING OUT OF BED MULTIPLE TIMES DURING THE SHIFT, REACTING TO IMAGINARY STIMULI, DENIES VISUAL AND AUDITORY HALLUCINATIONS, REDIRECTABLE, KEPT SAFE, WILL CONTINUE TO MONITOR.
[2017-06-20 08:00] VITALS: BP 126/72
[2017-06-20] MEDS: CHOLECALCIFEROL 1,000 UNIT TABLET (VIT D3) PO SCH (08:26)
[2017-06-20] MEDS: QUETIAPINE FUMARATE 25 MG TABLET PO SCH (08:27)
[2017-06-20] MEDS: TAMSULOSIN 0.4 MG CAP.SR.24H PO SCH (08:27)
[2017-06-20] MEDS: DOCUSATE SODIUM 100 MG CAPSULE PO SCH (08:27)
[2017-06-20] MEDS: MEMANTINE HCL 5 MG TABLET PO SCH (08:27)
[2017-06-20 08:28] VITALS: BP 126/72
[2017-06-20] MEDS: METOPROLOL SUCCINATE 50 MG TAB.SR.24H PO SCH (08:28)
[2017-06-20] MEDS: NEOMY SULF/BACITRAC ZN/POLY 15 GM TUBE TP SCH (09:00)
[2017-06-20] MEDS: Z GUARD REMEDY 2 OZ OINT TP SCH (09:00)
[2017-06-20] MEDS: BOOST PLUS FOOD-VANILLA 237 ML BOX PO SCH (09:38)
--- NOTE | 2017-06-20 10:16 | NUR ---
Discharge note: Pt. will discharge to [facility] [address] [place] [address] via [facility] at 3:00PM. Silke Sanchez, Power of supervisor ski production [phone] has been notified via voicemail. Pt. is calm and cooperative, alert and oriented x2. Pt. is agreeable with the discharge plan, denies suicidal/homicidal ideations. Pt. is a former smoker but was provided a referral to follow up with [facility] on at 12:00 PM by calling [phone] PIN: [phone] . Pt. was provided instructions on how to call. Discharge paperwork has been signed, discharge report will be given to the accepting facility.
--- NOTE | 2017-06-20 11:26 | NUR ---
GPS RN NOTE: PER T.Bro ORDER DC SEROQUEL 12.5 MG PO ONCE ORDER PLACED AND CARED OUT
[2017-06-20] MEDS ORDERED: QUETIAPINE FUMARATE 25 MG TABLET PO ONE (11:30)
[2017-06-20] MEDS: DIGOXIN 0.25 MG TABLET PO SCH (12:26)
[2017-06-20] MEDS ORDERED: QUETIAPINE FUMARATE 25 MG TABLET PO SCH (13:00)
--- NOTE | 2017-06-20 14:17 | NUR ---
GPS DISCHARGE NOTE: PATIENT DISCHARGE TO [facility] [address] [facility] REPORT GIVEN TO IRLANDA RN IN THE FACILITY. PATIENT IN STABLE CONDITION NO S/S DISTRESS NOTED PATIENT DENIES SI/HI AT THE TIME OF DISCHARGE, REFUSED ,SKIN ASSESSMENT, AND LABS FOR TODAY, REFUSED 1300 MEDICATIONS,PATIENT CONFUSED, REFUSED TO SIGN DISCHARGE PAPERS. EXIT CARE DONE PRINTED AND GIVEN TO PATIENT, PATIENT CELESTINE BURNS NOTIFIED OF DISCHARGE ,ALL BELONGINGS RETURNED TO PATIENT AND PAPER SIGN WITH ANOTHER STAFF , DR GUEVARA AND DR ANDERSON DC PATIENT WITH ORDERS TO CONTINUE ALL MEDICATIONS.
== END 2017-06-20 14:15 | DRG 885 ==
LOC: ER 16:25 → GPS 21:07
PROVIDERS: ADMIT Psychiatry & Neurology Psychosomatic Medicine; ATTEND Nurse Practitioner Acute Care
PROC: 07DR3ZX Extraction of Iliac Bone Marrow, Percutaneous Approach, Diagnostic (ICD-10-PCS; principal; 2017-06-17)
DX: F29 Unspecified psychosis not due to a substance or known physiological condition (principal); I11.0 Hypertensive heart disease with heart failure; G93.40 Encephalopathy, unspecified; I50.23 Acute on chronic systolic (congestive) heart failure; D68.59 Other primary thrombophilia; F32.3 Major depressive disorder, single episode, severe with psychotic features; C85.84 Other specified types of non-Hodgkin lymphoma, lymph nodes of axilla and upper limb; I42.9 Cardiomyopathy, unspecified; C83.34 Diffuse large B-cell lymphoma, lymph nodes of axilla and upper limb; E44.1 Mild protein-calorie malnutrition; Z68.1 Body mass index [BMI] 19.9 or less, adult; D69.6 Thrombocytopenia, unspecified; I25.10 Atherosclerotic heart disease of native coronary artery without angina pectoris; I48.2 Chronic atrial fibrillation; Z95.2 Presence of prosthetic heart valve; M19.90 Unspecified osteoarthritis, unspecified site; E78.00 Pure hypercholesterolemia, unspecified; E78.5 Hyperlipidemia, unspecified; F17.210 Nicotine dependence, cigarettes, uncomplicated; Z73.6 Limitation of activities due to disability; N40.0 Benign prostatic hyperplasia without lower urinary tract symptoms; J31.0 Chronic rhinitis; K40.90 Unilateral inguinal hernia, without obstruction or gangrene, not specified as recurrent; E29.1 Testicular hypofunction; S81.802A Unspecified open wound, left lower leg, initial encounter; X58.XXXA Exposure to other specified factors, initial encounter; Y93.9 Activity, unspecified; Y92.89 Other specified places as the place of occurrence of the external cause; Y99.9 Unspecified external cause status; L98.8 Other specified disorders of the skin and subcutaneous tissue; I87.2 Venous insufficiency (chronic) (peripheral); L85.3 Xerosis cutis; M72.9 Fibroblastic disorder, unspecified; S41.102A Unspecified open wound of left upper arm, initial encounter; S41.101A Unspecified open wound of right upper arm, initial encounter; D72.829 Elevated white blood cell count, unspecified; D64.9 Anemia, unspecified; D69.2 Other nonthrombocytopenic purpura; N28.1 Cyst of kidney, acquired; S81.812A Laceration without foreign body, left lower leg, initial encounter; Z95.3 Presence of xenogenic heart valve; Z79.01 Long term (current) use of anticoagulants
CPT/HCPCS: 36415; 70450-TC; 71260-TC; 72193-TC; 74160-TC; 76770-TC; 80048-TC; 80053-TC; 80061-TC; 80162-TC; 81000-TC; 82232; 82728-TC; 82746; 83540-TC; 83615-TC; 83735-TC; 84100-TC; 84134-TC; 84439-TC; 84443-TC; 85025-TC; 85610-TC; 85730-TC; 86706; 86803; 87081-TC; 87086-TC; 87340; 93307-TC; A4606; A6402; J3490; J7050; Q9967; Z7610